=== PATIENT | female | born 1970 | race Caucasian/White ===

== ENCOUNTER 2019-09-04 17:39 | Emergency (ER) | payer SELFPAY ==
[2019-09-04 18:48] LABS: Basophils % 0.3 % (0-1.3); Hematocrit 40.8 % (36.0-45.0); Lymphocytes % 15.9 % (15.3-44.8); MPV 7.7 fL (7.6-11.3); RBC Red Blood Cell Count 4.59 M/uL (3.86-4.86)
[2019-09-04 19:06] LABS: ALT/SGPT 16 U/L (12-78); AST/SGOT 9 U/L (15-37); Albumin 3.2 g/dL (3.4-5.0); Alkaline Phosphatase 154 U/L (45-117); BUN Blood Urea Nitrogen 9 mg/dL (7-18); Bicarbonate 26 mmol/L (21-32); Bilirubin Direct 0.2 mg/dL (0-0.2); Bilirubin Total 0.6 mg/dL (0.2-1.0); Glucose Level 214 mg/dL (74-106); Lipase 81 U/L (73-393); Potassium 3.7 mmol/L (3.5-5.1); Protein, Total 7.8 g/dL (6.4-8.2); Sodium Level 133 mmol/L (136-145)
[2019-09-04] MEDS ORDERED: ONDANSETRON 4 MG/2 ML VIAL ONE ×2 (19:47→23:15)
[2019-09-04 19:53] LABS: Urine Blood NEGATIVE (NEG); Urine Glucose NEGATIVE (NEG); Urine Protein NEGATIVE (NEG); Urine Specific Gravity 1.015 (1.005-1.030)
[2019-09-04] MEDS ORDERED: NA CHLORIDE 0.9% 1,000 ML ONE (20:24)
[2019-09-04 20:41] LABS: Protime INR 1.19
--- NOTE | 2019-09-04 20:46 | RAD REPORT ---
EXAM DESCRIPTION: RAD - Chest Single View - 09/04/2019 8:39 pm CLINICAL HISTORY: ABDOMINAL DISTENTION Chest pain. COMPARISON: CHEST SINGLE VIEW dated 09/06/2013 FINDINGS: Portable technique limits examination quality. The lungs are grossly clear. The heart is normal in size. No displaced fractures. IMPRESSION: No acute intrathoracic process suspected.
[2019-09-04 21:15] LABS: Magnesium 1.9 mg/dL (1.8-2.4); NT PRO-BNP 48 pg/mL (<125); Troponin (Emerg Dept Use Only) < 0.02 ng/mL (0.0-0.045)
[2019-09-04] MEDS ORDERED: FAMOTIDINE 20 MG/2 ML VIAL IV ONE (23:15)
[2019-09-04] MEDS ORDERED: METRONIDAZOLE 500mg IVPB 500 MG/100 ML BAG IV ONE (23:15)
[2019-09-04] MEDS ORDERED: CIPROFLOXACIN 400mg IV 400 MG/200 ML BAG IV ONE (23:15)
--- NOTE | 2019-09-05 00:11 | ER ---
Nurse's Notes [facility] Name: Carin North Age: 49 yrs Sex: Female : 1970 Arrival Date: 09/04/2019 Time: 17:46 Bed 16 Private MD: Diagnosis: Abdominal tenderness;Ventral hernia;Obesity, unspecified-morbid;Vomiting;Urinary tract infection, site not specified;Elevated white blood cell count Presentation: 09/04 17:48 Presenting complaint: EMS states: N/V and Hernia pain for the past 3 days. Pt hasn't ca1 had a Doctor's visit in 6 years and has not been ambulating in 4 years. Last BM is 2 days ago. Transition of care: patient was not received from another setting of care. Onset of symptoms was September 04, 2019. Risk Assessment: Do you want to hurt yourself or someone else? Patient reports no desire to harm self or others. Initial Sepsis Screen: Does the patient meet any 2 criteria? No. Patient's initial sepsis screen is negative. Does the patient have a suspected source of infection? No. Patient's initial sepsis screen is negative. Care prior to arrival: None. 17:48 Method Of Arrival: EMS: [facility] ca1 17:48 Acuity: JEANNETTE 3 ca1 Triage Assessment: 17:52 General: Appears in no apparent distress. obese, Behavior is calm, cooperative, ca1 appropriate for age. Pain: Complains of pain in abdomen Pain does not radiate. Pain Pain began 2-3 days ago. EENT: No deficits noted. No signs and/or symptoms were reported regarding the EENT system. Neuro: Level of Consciousness is awake, alert, obeys commands, Oriented to person, place, time, situation, Appropriate for age. Cardiovascular: Heart tones S1 S2 present Capillary refill < 3 seconds Patient's skin is warm and dry. Pulses are all present. Rhythm is sinus tachycardia. Respiratory: Airway is patent Trachea midline Respiratory effort is even, unlabored, Respiratory pattern is regular, symmetrical, Breath sounds are clear bilaterally. GI: Abdomen is round non-distended, obese, Bowel sounds present X 4 quads. Abd is soft X 4 quads Abdomen is tender to palpation in umbilical area. : No deficits noted. No signs and/or symptoms were reported regarding the genitourinary system. Derm: Skin is intact, is healthy with good turgor, Skin is pink, warm \T\ dry. Musculoskeletal: Circulation, motion, and sensation intact. Capillary refill < 3 seconds. 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 - Social history:: Smoking status: Patient uses tobacco products, smokes one pack cigarettes per day. - Ebola Screening: : Patient negative for fever greater than or equal to 101.5 degrees Fahrenheit, and additional compatible Ebola Virus Disease symptoms Patient denies exposure to infectious person Patient denies travel to an Ebola-affected area in the 21 days before illness onset No symptoms or risks identified at this time. - Family history:: not pertinent. Screenin:59 Abuse screen: Denies threats or abuse. Denies injuries from another. Nutritional ca1 screening: No deficits noted. Tuberculosis screening: No symptoms or risk factors identified. Fall Risk IV access (20 points). Ambulatory Aid- None/Bed Rest/Nurse Assist (0 pts). Assessment: 17:59 Reassessment: SEE TRIAGE ASSESSMENT. ca1 19:00 Reassessment: Patient appears in no apparent distress at this time. Patient and/or ca1 family updated on plan of care and expected duration. Pain level reassessed. Patient is alert, oriented x 3, equal unlabored respirations, skin warm/dry/pink. 19:16 Reassessment: Patient appears in no apparent distress at this time. Patient and/or wh family updated on plan of care and expected duration. Pain level reassessed. Patient is alert, oriented x 3, equal unlabored respirations, skin warm/dry/pink. PT requesting urinal states that what she uses at home. 20:10 Reassessment: Spoke with Siria outside lab regarding additional orders for Trop, BNP wh and Mag. Green top was already sent requested to add additional lab works which she said was ok. 20:30 Reassessment: Patient appears in no apparent distress at this time. No changes from previously documented assessment. Patient and/or family updated on plan of care and expected duration. Pain level reassessed. Patient is alert, oriented x 3, equal unlabored respirations, skin warm/dry/pink. Patient states feeling better. Patient states symptoms have improved. 21:45 Reassessment: Patient appears in no apparent distress at this time. No changes from previously documented assessment. Patient and/or family updated on plan of care and expected duration. Pain level reassessed. Patient is alert, oriented x 3, equal unlabored respirations, skin warm/dry/pink. 22:22 Reassessment: Dr Navjot WILSON at bedside. 22:45 Reassessment: Patient appears in no apparent distress at this time. No changes from previously documented assessment. Patient and/or family updated on plan of care and expected duration. Pain level reassessed. Patient is alert, oriented x 3, equal unlabored respirations, skin warm/dry/pink. PT taken to CT scan for imaging. 23:50 Reassessment: Patient appears in no apparent distress at this time. No changes from previously documented assessment. Patient and/or family updated on plan of care and expected duration. Pain level reassessed. Patient is alert, oriented x 3, equal unlabored respirations, skin warm/dry/pink. Notified Pt of POC and plan for transfer Patient denies pain at this time. Patient states feeling better. Patient states symptoms have improved. 09/05 00:57 Reassessment: Patient appears in no apparent distress at this time. No changes from previously documented assessment. Patient and/or family updated on plan of care and expected duration. Pain level reassessed. Patient is alert, oriented x 3, equal unlabored respirations, skin warm/dry/pink. Patient denies pain at this time. Patient states feeling better. Patient states symptoms have improved. 02:20 Reassessment: Patient appears in no apparent distress at this time. No changes from previously documented assessment. Patient and/or family updated on plan of care and expected duration. Pain level reassessed. Patient is alert, oriented x 3, equal unlabored respirations, skin warm/dry/pink. Explained plan fo transfer to [facility] Patient denies pain at this time. Patient states feeling better. Patient states symptoms have improved. 03:04 Reassessment: Patient appears in no apparent distress at this time. Report called to Dinora Mendez RN. 03:40 Reassessment: Patient appears in no apparent distress at this time. No changes from previously documented assessment. Patient and/or family updated on plan of care and expected duration. Pain level reassessed. Patient is alert, oriented x 3, equal unlabored respirations, skin warm/dry/pink. Patient denies pain at this time. Patient states feeling better. Patient states symptoms have improved. Vital Signs: 09/04 17:52 BP 149 / 94; Pulse 108; Resp 20; Temp 98.3(O); Pulse Ox 96% on R/A; Weight 201.85 kg ca1 (R); Height 5 ft. 4 in. (162.56 cm) (R); Pain 9/10; 19:00 BP 135 / 72; Pulse 117; Resp 19 S; Pulse Ox 96% on R/A; ca1 20:30 BP 124 / 72; Pulse 119; Resp 18; Pulse Ox 96% on R/A; wh 22:00 BP 139 / 67; Pulse 112; Resp 18; Pulse Ox 97% ; wh 22:00 BP 150 / 94; Pulse 120; Resp 18; Pulse Ox 99% on R/A; 09/05 00:58 BP 128 / 88; Pulse 115; Resp 18; Pulse Ox 98% ; wh 02:45 BP 125 / 79; Pulse 115; Resp 18; Pulse Ox 95% on R/A; 09/04 17:52 Body Mass Index 76.38 (201.85 kg, 162.56 cm) ca1 ED Course: 09/04 17:46 Patient arrived in ED. ca1 17:47 Karla Coyle, RN is Primary Nurse. ca1 17:50 Triage completed. ca1 17:52 Arm band placed on right wrist. ca1 17:59 Patient has correct armband on for positive identification. Placed in gown. Bed in low ca1 position. Call light in reach. Side rails up X2. monitor tech on. Pulse ox on. NIBP on. Warm blanket given. 18:35 Initial lab(s) drawn, by me, sent to lab. Inserted saline lock: 22 gauge in left ca1 antecubital area, using aseptic technique. Blood collected. 19:01 No provider procedures requiring assistance completed. ca1 19:28 Yuri Morfin MD is Attending Physician. [facility] 19:50 Hilario Wells is Primary Nurse. wh 20:40 XRAY Chest (1 view) In Process Unspecified. EDMS 23:39 Abdomen In Process Unspecified. EDMS 09/05 00:08 Jared Ibanez MD is Hospitalizing Provider. stephane 03:50 Patient transferred, IV remains in place. Administered Medications: 09/04 19:50 Drug: Zofran 4 mg Route: IVP; Site: left antecubital; 21:44 Follow up: Response: No adverse reaction; Nausea is decreased 20:34 Drug: NS 0.9% 1000 ml Route: IV; Rate: 1 bolus; Site: left antecubital; 21:44 Follow up: Response: No adverse reaction; IV Status: Completed infusion 09/05 01:00 Follow up: Response: No adverse reaction; IV Status: Completed infusion 09/04 23:15 Drug: Flagyl 500 mg Volume: 100 ml; Route: IVPB; Rate: 200 ml/hr; Infused Over: 30 wh mins; Site: left antecubital; 09/05 01:01 Follow up: Response: No adverse reaction; IV Status: Completed infusion 09/04 23:19 Drug: Pepcid 20 mg Route: IVP; Site: left antecubital; 09/05 01:03 Follow up: Response: No adverse reaction 09/04 23:21 Not Given (Patient Refused): morphine 4 mg IVP once; RASS on ADMIN: Combtv4, Very wh Agttd3, Agttd2, Rstlss1, AlertClm0, Drwsy-1, Lt Sdtn-2, Mod Sdtn-3, Dp Sdtn-4, UnArsble-5 23:21 Drug: Zofran 4 mg Route: IVP; Site: left antecubital; 09/05 01:03 Follow up: Response: No adverse reaction; Nausea is decreased 09/04 23:52 Not Given (Duplicate Order): Cipro 400 mg 200 ml IVPB once over 60 mins stephane 23:58 Drug: Cipro 400 mg Volume: 200 ml; Route: IVPB; Infused Over: 60 mins; Site: left antecubital; 09/05 01:03 Follow up: Response: No adverse reaction; IV Status: Completed infusion Outcome: 00:10 Decision to Hospitalize by Provider. stephane 00:15 ER care complete, transfer ordered by . stephane 03:49 Transferred by ground EMS to [facility], Transfer form wh completed. X-rays sent w/ patient. Note: REport called to Jose Daniel Mendez RN 03:49 Transferred Note: Report given to [facility] 03:49 Condition: stable 03:49 Instructed on the need for transfer. 03:50 Patient left the ED. Signatures: Dispatcher [employer] EDYuri Castaneda MD MD cha Habalo, Winsy wh Acob, Cheryl, RN RN ca1 Corrections: (The following items were deleted from the chart) 09/04 19:01 17:52 Cardiovascular: Heart tones S1 S2 present Capillary refill < 3 seconds Patient's ca1 skin is warm and dry. Pulses are all present. ca1
--- NOTE | 2019-09-05 00:12 | EDPHYS ---
Physician Documentation [facility] Name: Carin North Age: 49 yrs Sex: Female : 1970 Arrival Date: 09/04/2019 Time: 17:46 Bed 16 Private MD: ED Physician Yuri Morfin HPI: 09/04 22:25 This 49 yrs old Female presents to ER via EMS with complaints of Abdominal stephane Pain. 22:25 The patient presents with abdominal pain in the lower abdomen, in the periumbilical stephane area. abdominal distention in the upper abdomen, in the lower abdomen. Onset: The symptoms/episode began/occurred 3 day(s) ago. The symptoms do not radiate. Associated signs and symptoms: none. The symptoms are described as constant, crampy. Modifying factors: The symptoms are alleviated by nothing, the symptoms are aggravated by movement, pressure. Severity of pain: At its worst the pain was mild in the emergency department the pain is unchanged. The patient has not experienced similar symptoms in the past. 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 - Social history:: Smoking status: Patient uses tobacco products, smokes one pack cigarettes per day. - Ebola Screening: : Patient negative for fever greater than or equal to 101.5 degrees Fahrenheit, and additional compatible Ebola Virus Disease symptoms Patient denies exposure to infectious person Patient denies travel to an Ebola-affected area in the 21 days before illness onset No symptoms or risks identified at this time. - Family history:: not pertinent. ROS: 22:25 Constitutional: Negative for fever, chills, and weight loss, Eyes: Negative for injury, stephane pain, redness, and discharge, ENT: Negative for injury, pain, and discharge, Neck: Negative for injury, pain, and swelling, Respiratory: Negative for shortness of breath, cough, wheezing, and pleuritic chest pain, Back: Negative for injury and pain, : Negative for injury, bleeding, discharge, and swelling, MS/Extremity: Negative for injury and deformity, Skin: Negative for injury, rash, and discoloration, Neuro: Negative for headache, weakness, numbness, tingling, and seizure, Psych: Negative for depression, anxiety, suicide ideation, homicidal ideation, and hallucinations, Allergy/Immunology: Negative for hives, rash, and allergies, Endocrine: Negative for neck swelling, polydipsia, polyuria, polyphagia, and marked weight changes, Hematologic/Lymphatic: Negative for swollen nodes, abnormal bleeding, and unusual bruising. 22:25 Cardiovascular: Positive for palpitations. 22:25 Abdomen/GI: Positive for abdominal pain, nausea and vomiting, of the umbilical area and right lower quadrant. Exam: 22:25 Constitutional: This is a well developed, well nourished patient who is awake, alert, stephane and in no acute distress. Head/Face: Normocephalic, atraumatic. Eyes: Pupils equal round and reactive to light, extra-ocular motions intact. Lids and lashes normal. Conjunctiva and sclera are non-icteric and not injected. Cornea within normal limits. Periorbital areas with no swelling, redness, or edema. ENT: Nares patent. No nasal discharge, no septal abnormalities noted. Tympanic membranes are normal and external auditory canals are clear. Oropharynx with no redness, swelling, or masses, exudates, or evidence of obstruction, uvula midline. Mucous membranes moist. Neck: Trachea midline, no thyromegaly or masses palpated, and no cervical lymphadenopathy. Supple, full range of motion without nuchal rigidity, or vertebral point tenderness. No Meningismus. Chest/axilla: Normal chest wall appearance and motion. Nontender with no deformity. No lesions are appreciated. Respiratory: Lungs have equal breath sounds bilaterally, clear to auscultation and percussion. No rales, rhonchi or wheezes noted. No increased work of breathing, no retractions or nasal flaring. Back: No spinal tenderness. No costovertebral tenderness. Full range of motion. Pelvic Exam: Normal external genitalia. Speculum exam with closed cervical os, no discharge or bleeding noted. Bimanual exam with normal adnexa, no adnexal or cervical motion tenderness. Normal uterus. Female : Normal external genitalia. Skin: Warm, dry with normal turgor. Normal color with no rashes, no lesions, and no evidence of cellulitis. MS/ Extremity: Pulses equal, no cyanosis. Neurovascular intact. Full, normal range of motion. Neuro: Awake and alert, GCS 15, oriented to person, place, time, and situation. Cranial nerves II-XII grossly intact. Motor strength 5/5 in all extremities. Sensory grossly intact. Cerebellar exam normal. Normal gait. Psych: Awake, alert, with orientation to person, place and time. Behavior, mood, and affect are within normal limits. 22:25 Cardiovascular: Rate: tachycardic, Rhythm: regular, Pulses: no pulse deficits are appreciated, Heart sounds: normal, normal S1and S2, no S3 or S4, no murmur, no rub, no gallop, Edema: is not appreciated, JVD: is not appreciated. Vital Signs: 17:52 BP 149 / 94; Pulse 108; Resp 20; Temp 98.3(O); Pulse Ox 96% on R/A; Weight 201.85 kg ca1 (R); Height 5 ft. 4 in. (162.56 cm) (R); Pain 9/10; 19:00 BP 135 / 72; Pulse 117; Resp 19 S; Pulse Ox 96% on R/A; ca1 20:30 BP 124 / 72; Pulse 119; Resp 18; Pulse Ox 96% on R/A; wh 22:00 BP 139 / 67; Pulse 112; Resp 18; Pulse Ox 97% ; wh 22:00 BP 150 / 94; Pulse 120; Resp 18; Pulse Ox 99% on R/A; 09/05 00:58 BP 128 / 88; Pulse 115; Resp 18; Pulse Ox 98% ; wh 02:45 BP 125 / 79; Pulse 115; Resp 18; Pulse Ox 95% on R/A; 09/04 17:52 Body Mass Index 76.38 (201.85 kg, 162.56 cm) ca1 MDM: 09/04 19:28 Patient medically screened. [facility] 22:28 Data reviewed: vital signs, nurses notes, lab test result(s), EKG, radiologic studies, [facility] CT scan, plain films. 09/04 18:35 Order name: Basic Metabolic Panel; Complete Time: 19:51 ca1 09/04 18:35 Order name: CBC with Diff; Complete Time: 19:51 ca1 09/04 18:35 Order name: Hepatic Function; Complete Time: 19:51 ca1 09/04 18:35 Order name: Lipase; Complete Time: 19:51 ca1 09/04 19:38 Order name: Urine Dipstick--Ancillary (enter results); Complete Time: 22:15 sp 09/04 19:58 Order name: Magnesium; Complete Time: 22:15 [facility] 09/04 19:58 Order name: NT PRO-BNP; Complete Time: 22:15 stephane 09/04 19:58 Order name: PT-INR; Complete Time: 22:15 [facility] 09/04 19:58 Order name: Troponin (emerg Dept Use Only); Complete Time: 22:15 stephane 09/04 19:58 Order name: XRAY Chest (1 view); Complete Time: 22:15 [facility] 09/04 23:19 Order name: Abdomen EDMS 09/05 00:57 Order name: Lactate [facility] 09/04 18:35 Order name: IV Saline Lock; Complete Time: 18:35 [facility] 09/04 18:35 Order name: Labs collected and sent; Complete Time: 18:35 [facility] 09/04 19:24 Order name: Urine Dipstick-Ancillary (obtain specimen); Complete Time: 19:29 cc3 09/04 19:58 Order name: EKG; Complete Time: 19:59 [facility] 09/04 19:58 Order name: Cardiac monitoring; Complete Time: 20:35 [facility] 09/04 19:58 Order name: EKG - Nurse/Tech; Complete Time: 20:35 [facility] 09/04 19:58 Order name: O2 Per Protocol; Complete Time: 20:01 [facility] 09/04 19:58 Order name: O2 Sat Monitoring; Complete Time: 20:01 [facility] Administered Medications: 19:50 Drug: Zofran 4 mg Route: IVP; Site: left antecubital; 21:44 Follow up: Response: No adverse reaction; Nausea is decreased 20:34 Drug: NS 0.9% 1000 ml Route: IV; Rate: 1 bolus; Site: left antecubital; 21:44 Follow up: Response: No adverse reaction; IV Status: Completed infusion 09/05 01:00 Follow up: Response: No adverse reaction; IV Status: Completed infusion 09/04 23:15 Drug: Flagyl 500 mg Volume: 100 ml; Route: IVPB; Rate: 200 ml/hr; Infused Over: 30 wh mins; Site: left antecubital; 09/05 01:01 Follow up: Response: No adverse reaction; IV Status: Completed infusion 09/04 23:19 Drug: Pepcid 20 mg Route: IVP; Site: left antecubital; 09/05 01:03 Follow up: Response: No adverse reaction 09/04 23:21 Not Given (Patient Refused): morphine 4 mg IVP once; RASS on ADMIN: Combtv4, Very wh Agttd3, Agttd2, Rstlss1, AlertClm0, Drwsy-1, Lt Sdtn-2, Mod Sdtn-3, Dp Sdtn-4, UnArsble-5 23:21 Drug: Zofran 4 mg Route: IVP; Site: left antecubital; 09/05 01:03 Follow up: Response: No adverse reaction; Nausea is decreased 09/04 23:52 Not Given (Duplicate Order): Cipro 400 mg 200 ml IVPB once over 60 mins [facility] 23:58 Drug: Cipro 400 mg Volume: 200 ml; Route: IVPB; Infused Over: 60 mins; Site: left antecubital; 09/05 01:03 Follow up: Response: No adverse reaction; IV Status: Completed infusion Disposition: 09/05/19 00:15 Transfer ordered to [facility]. Diagnosis are Abdominal tenderness, Ventral hernia, Obesity, unspecified - morbid, Vomiting, Urinary tract infection, site not specified, Elevated white blood cell count. - Reason for transfer: Higher level of care. - Accepting physician is to [facility]. - Condition is Fair. - Problem is new. - Symptoms have improved. Signatures: Dispatcher [employer] EDVT Yuri Morfin MD MD cha Habalo, Meñoasher Joanna Tamez cc3 Leonides, Karla, RN RN ca1 Corrections: (The following items were deleted from the chart) 09/04 19:53 18:36 Creatinine for Radiology+C.LAB.BRZ ordered. [facility] EDVT 23:17 20:00 Abdomen Pelvis W Con+CT.RAD.BRZ ordered. [facility] 09/05 00:11 00:10 Hospitalization Ordered by Jared Ibanez MD for Inpatient Admission. Preliminary [facility] diagnosis is Ventral hernia; Vomiting; Obesity, unspecified - morbid; Abdominal tenderness. Bed requested for Telemetry/MedSurg (Inpatient). Status is Inpatient Admission. Condition is Fair. Problem is new. Symptoms have improved. UTI on Admission? No. [facility] 00:13 00:11 09/05/2019 00:10 Hospitalization Ordered by Jared Ibanez MD for Inpatient [facility] Admission. Preliminary diagnosis is Ventral hernia; Vomiting; Obesity, unspecified - morbid; Abdominal tenderness; Urinary tract infection, site not specified. Bed requested for Telemetry/MedSurg (Inpatient). Status is Inpatient Admission. Condition is Fair. Problem is new. Symptoms have improved. UTI on Admission? Yes. [facility] 00:40 00:15 09/05/2019 00:15 Transfer ordered to [facility]. Diagnosis is stephane Abdominal tenderness; Ventral hernia; Obesity, unspecified - morbid; Vomiting; Urinary tract infection, site not specified. Reason for transfer: Higher level of care. Accepting physician is to [facility]. Condition is Fair. Problem is new. Symptoms have improved. [facility] 02:38 00:40 09/05/2019 00:15 Transfer ordered to [facility]. Diagnosis is stephane Abdominal tenderness; Ventral hernia; Obesity, unspecified - morbid; Vomiting; Urinary tract infection, site not specified; Elevated white blood cell count. Reason for transfer: Higher level of care. Accepting physician is to [facility]. Condition is Fair. Problem is new. Symptoms have improved. [facility] 03:50 02:38 09/05/2019 00:15 Transfer ordered to [facility]. Diagnosis is Abdominal wh tenderness; Ventral hernia; Obesity, unspecified - morbid; Vomiting; Urinary tract infection, site not specified; Elevated white blood cell count. Reason for transfer: Higher level of care. Accepting physician is to [facility]. Condition is Fair. Problem is new. Symptoms have improved. stephane
[2019-09-05 04:10] VITALS: TEMP 98.3
[2019-09-05 04:20] VITALS: BP 125/79; O2SAT 95
--- NOTE | 2019-09-05 08:44 | EKG ---
Test Date: 2019-09-04 Test Time: 20:27:59 Costume Cutter: KENNY MEASUREMENT RESULTS: Intervals: Rate: 127 WI: 152 QRSD: 90 QT: 322 QTc: 467 [place]: P: 54 WI: 152 QRS: 113 T: 35 INTERPRETIVE STATEMENTS: Sinus tachycardia Possible Right ventricular hypertrophy Possible Inferior infarct, age undetermined Abnormal ECG Compared to ECG 09/06/2013 20:45:47 questionable myocardial infarct finding now present Sinus rhythm no longer present Prolonged QT interval no longer present Electronically Signed On 09-05-19 08:44:10 CDT by Raffaele Brown
--- NOTE | 2019-09-07 13:43 | RAD REPORT ---
EXAM DESCRIPTION: CT - Abdomen Pelvis W Contrast - 09/04/2019 11:39 pm CLINICAL HISTORY: PAIN TECHNIQUE: Contiguous axial images obtained through the abdomen and pelvis following the uneventful administration of IV contrast. Coronal and sagittal reformatted images were provided. This exam was performed according to our departmental dose-optimization program, which includes autom ated exposure control, adjustment of the mA and/or kV according to patient size and/or use of iterati ve reconstruction technique. COMPARISON: 09/06/2013 FINDINGS: Lung bases: Right middle lobe calcified granuloma. Right basilar subsegmental atelectasis/ pleural parenchymal scar. Liver: The liver is enlarged and diffusely low in density compatible with steatosis. Gallbladder and biliary system: The gallbladder is not visualized and thought to be surgically absent . Pancreas: Unremarkable Spleen: Unremarkable Adrenals: Unremarkable Kidneys: Normal renal cortical enhancement. No calculi. No hydronephrosis. Bowel: Colonic diverticula without adjacent inflammatory change. No obstruction. No appreciable mucos al thickening. Appendix: The appendix is not definitively visualized. No findings to suggest acute appendicitis. Urinary bladder: Unremarkable Reproductive: Unremarkable as visualized Lymph nodes: No pathologically enlarged lymph nodes. Peritoneum: No focal fluid collection. No free air. Vessels: No abdominal aortic aneurysm. Abdominal wall: Large ventral abdominal wall hernia which appears increased in size containing portio ns of the transverse colon as well as a small bowel loop. Mild thickening of the small bowel loop wit hin the hernia. Minimal infiltrative changes within and surrounding the hernia. Bones: Mild multilevel spondylosis. No acute fracture. IMPRESSION: 1. Large ventral abdominal wall hernia which appears increased in size containing port ions of the transverse colon as well as a small bowel loop. Mild thickening of the small bowel loop w ithin the hernia. Minimal infiltrative changes within and surrounding the hernia. Although the small bowel findings may be related to nonspecific enteritis, please correlate clinically for the possibili ty of incarceration and/or strangulation. 2. Other findings as above. Electronically signed by: Markos Mckeon MD 09/04/2019 11:54 PM CDT Due to temporary technical issues with the PACS/Fluency reporting system, reports are being signed by the in house radiologist as a courtesy to ensure prompt reporting. The interpreting radiologist is f ully responsible for the content of the report.
== END 2019-09-05 03:50 | disposition short-term general hospital (02) ==
LOC: ER 17:39
DX: K43.9 Ventral hernia without obstruction or gangrene (principal); N39.0 Urinary tract infection, site not specified; R11.10 Vomiting, unspecified; D72.829 Elevated white blood cell count, unspecified; R10.819 Abdominal tenderness, unspecified site; E66.9 Obesity, unspecified; E66.01 Morbid (severe) obesity due to excess calories; Z88.0 Allergy status to penicillin; F17.210 Nicotine dependence, cigarettes, uncomplicated
CPT/HCPCS: 36415; 71045; 74177; 80048; 80076; 81003; 83605; 83690; 83735; 83880; 84484; 85025; 85610; 93005; 96361; 96365; 96368; 96375; 99285; J0744; J2405; J7030; Q9967

== ENCOUNTER 2020-05-03 13:05 | Emergency (ER) | payer SELFPAY ==
[2020-05-03] MEDS ORDERED: NA CHLORIDE 0.9% 1,000 ML ONE (13:46)
[2020-05-03 13:52] LABS: Absolute Lymphocytes (CBC) 1.3 K/uL (0.7-4.9); Basophils % 0.9 % (0-1.3); Hematocrit 43.5 % (36.0-45.0); Lymphocytes % 9.9 % (15.3-44.8); MPV 7.6 fL (7.6-11.3); RBC Red Blood Cell Count 4.79 M/uL (3.86-4.86)
--- NOTE | 2020-05-03 14:05 | RAD REPORT ---
EXAM DESCRIPTION: US - Extremity Nonvascular Complete - 05/03/2020 1:58 pm CLINICAL HISTORY: evaluate for abscess in left abd COMPARISON: No comparisons TECHNIQUE: Real-time sonographic evaluation of the area of interest was performed. FINDINGS: Edematous appearance of the soft tissues in the area of interest noted. No discrete absces s collection identified.
[2020-05-03 14:08] LABS: Potassium 3.3 mmol/L (3.5-5.1)
--- NOTE | 2020-05-03 14:48 | ER ---
Nurse's Notes [facility] Name: Carin North Age: 50 yrs Sex: Female : 1970 Arrival Date: 05/03/2020 Time: 13:16 Bed 18 Private MD: Diagnosis: Anxiety disorder, unspecified Presentation: 05/03 13:05 Chief complaint: EMS states: she was on a transit bus and developed anxiety. She c/o ah pain all over 7/10 and nausea. Per EMS last BP 117/59, HR 127. Coronavirus screen: Proceed with normal triage. Ebola Screen: No symptoms or risks identified at this time. Initial Sepsis Screen: Does the patient meet any 2 criteria? No. Patient's initial sepsis screen is negative. Does the patient have a suspected source of infection? No. Patient's initial sepsis screen is negative. Risk Assessment: Do you want to hurt yourself or someone else? Patient reports no desire to harm self or others. Onset of symptoms was May 03, 2020. Care prior to arrival: Medication(s) given: zofran 2 mgIV Ativan 4mg IV. 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 - Social history:: Smoking status: Patient denies any tobacco usage or history of. Screenin:30 Abuse screen: Denies threats or abuse. Nutritional screening: No deficits noted. Tuberculosis screening: No symptoms or risk factors identified. Fall Risk None identified. Gait- Normal/Bed Rest/Wheelchair (0 pts). Assessment: 13:15 General: Appears in no apparent distress. Behavior is calm, cooperative, appropriate ah for age. Pain: Complains of pain in ALL OVER. Neuro: Level of Consciousness is awake, alert, obeys commands, Oriented to person, place, time, situation, Appropriate for age. Cardiovascular: Heart tones S1 S2 present Capillary refill < 3 seconds Patient's skin is warm and dry. Rhythm is sinus tachycardia. Respiratory: Airway is patent Respiratory effort is even, unlabored, Breath sounds are clear bilaterally. GI: Reports nausea. Derm: Skin is intact, is healthy with good turgor, Pt states that she has large mass on left side that has been growing over approx 5 months. She denies seeing a doctor. Musculoskeletal: Reports bedbound x1 year. 14:18 Reassessment: Patient and/or family updated on plan of care and expected duration. Pain ah level reassessed. Patient is alert, oriented x 3, equal unlabored respirations, skin warm/dry/pink. awaiting results of labs. no needs voiced at this time. Vital Signs: 13:05 BP 145 / 59; Pulse 125; Resp 16; Temp 98.1; Pulse Ox 95% ; Weight 181.44 kg; Height 5 ah ft. 4 in. (162.56 cm); Pain 7/10; 14:00 BP 117 / 71; Pulse 122; Resp 17; Pulse Ox 96% ; ah 14:39 BP 126 / 71; Pulse 108; Resp 19; Pulse Ox 96% ; jl7 13:05 Body Mass Index 68.66 (181.44 kg, 162.56 cm) ED Course: 13:16 Patient arrived in ED. 13:16 Bushra Brown, RN is Primary Nurse. 13:22 Carmella Heard FNP-C is PHCP. kb 13:22 Avtar Gómez MD is Attending Physician. kb 13:22 Maintain EMS IV. Dressing intact. Good blood return noted. Site clean \T\ dry. Gauge \T\ henok 3 site: 22 gauge in L Wrist. Patient maintains SpO2 saturation greater than 95% on room air. 13:23 Triage completed. ah 13:23 Patient has correct armband on for positive identification. Bed in low position. Call jp3 light in reach. Side rails up X 1. Side rails up X2. Verbal reassurance given. tire layer on. Pulse ox on. NIBP on. 13:58 Extremity Nonvascular Complete In Process Unspecified. EDMS 14:44 Arm band placed on right wrist. jl7 15:06 Removal of peripheral IV. Catheter intact, dressing applied. jp3 15:21 No provider procedures requiring assistance completed. IV discontinued, intact, jl7 bleeding controlled, No redness/swelling at site. Pressure dressing applied. Administered Medications: 13:30 Drug: NS 0.9% 1000 ml Route: IV; Rate: 1000 ml; Site: left wrist; 15:00 Follow up: Response: No adverse reaction; IV Status: Completed infusion; IV Intake: jl7 1000ml Intake: 15:00 IV: 1000ml; Total: 1000ml. jl7 Outcome: 14:48 Discharge ordered by MD. seay 15:21 Discharged to home via ambulance. jl7 15:21 Condition: stable 15:21 Discharge instructions given to patient, Instructed on discharge instructions, follow up and referral plans. Demonstrated understanding of instructions, follow-up care. 15:23 Patient left the ED. jl7 Signatures: Dispatcher [employer] EDMS Carmella Heard FNP-C FNP-Ckb Leal, Jahala RN RN jl7 Carlton Rodriguez jp3 Bushra Brown, RN RN
--- NOTE | 2020-05-03 14:49 | EDPHYS ---
Physician Documentation [facility] Name: Carin North Age: 50 yrs Sex: Female : 1970 Arrival Date: 05/03/2020 Time: 13:16 Bed 18 Private MD: ED Physician Avtar Gómez HPI: 05/03 14:52 This 50 yrs old Female presents to ER via EMS with complaints of Anxiety. kb 14:52 The patient presents to the emergency department with anxiety. Onset: The kb symptoms/episode began/occurred just prior to arrival. Past psychiatric history: Prior diagnosis: anxiety. Associated signs and symptoms: Pertinent positives; anxiety, Pertinent negatives: abdominal pain, chest pain, chills, delusions, depression, fever, hallucinations, headache, homicidal ideation, nausea, night sweats, palpitations, paranoia, shortness of breath, substance abuse, suicide ideation, tremor, vomiting. Severity of symptoms: At their worst the symptoms were moderate in the emergency department the symptoms are unchanged. The patient has experienced similar episodes in the past, multiple times. The patient has not recently seen a physician. Pt reports she was being moved today and when they got to the new house the AC was broken so it was too hot and she couldn't breathe then she started having a panic attack. Pt crying as she explains currents stressors. States she has been bedbound for a year, completely unable to stand due to osteoarthritis. Pt is also concerned about some areas she refers to as "growths" in her abd. One has been there for a long time and a dr told her not to worry about it. Now there is a second one that started 5 months ago. 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 - Social history:: Smoking status: Patient denies any tobacco usage or history of. ROS: 14:55 Constitutional: Negative for fever, chills, and weight loss, Cardiovascular: Negative kb for chest pain, palpitations, and edema, Respiratory: Negative for shortness of breath, cough, wheezing, and pleuritic chest pain, Abdomen/GI: Negative for abdominal pain, nausea, vomiting, diarrhea, and constipation, Back: Negative for injury and pain, MS/Extremity: Negative for injury and deformity, Skin: Negative for injury, rash, and discoloration, Neuro: Negative for headache, weakness, numbness, tingling, and seizure. 14:55 Psych: Positive for anxiety, Negative for depression, drug dependence, alcohol dependence, auditory hallucinations, visual hallucinations, homicidal ideation, insomnia, suicide gesture, suicidal ideation. 14:57 Skin: Positive for "growths" in abd. kb Exam: 14:55 Constitutional: This is a well developed, well nourished patient who is awake, alert, kb and in no acute distress. Head/Face: Normocephalic, atraumatic. Chest/axilla: Normal chest wall appearance and motion. Nontender with no deformity. No lesions are appreciated. Cardiovascular: Regular rate and rhythm with a normal S1 and S2. No gallops, murmurs, or rubs. Normal PMI, no JVD. No pulse deficits. Respiratory: Lungs have equal breath sounds bilaterally, clear to auscultation and percussion. No rales, rhonchi or wheezes noted. No increased work of breathing, no retractions or nasal flaring. Abdomen/GI: Soft, non-tender, with normal bowel sounds. No distension or tympany. No guarding or rebound. No evidence of tenderness throughout. Firm areas in left lateral abd. Skin: Warm, dry with normal turgor. Normal color with no rashes, no lesions, and no evidence of cellulitis. 14:55 Psych: Behavior/mood is cooperative, anxious, depressed, Affect is animated, Oriented to person, place, time, Patient has no thoughts/intents to harm self or others. Judgement / Insight is normal. Memory is normal. Delusions/hallucinations are not present. Vital Signs: 13:05 BP 145 / 59; Pulse 125; Resp 16; Temp 98.1; Pulse Ox 95% ; Weight 181.44 kg; Height 5 ah ft. 4 in. (162.56 cm); Pain 7/10; 14:00 BP 117 / 71; Pulse 122; Resp 17; Pulse Ox 96% ; 14:39 BP 126 / 71; Pulse 108; Resp 19; Pulse Ox 96% ; jl7 13:05 Body Mass Index 68.66 (181.44 kg, 162.56 cm) MDM: 13:22 Patient medically screened. kb 14:52 Data reviewed: vital signs, nurses notes. Data interpreted: Pulse oximetry: on room air kb is 96 %. Interpretation: normal. Counseling: I had a detailed discussion with the patient and/or guardian regarding: the historical points, exam findings, and any diagnostic results supporting the discharge/admit diagnosis, lab results, the need for outpatient follow up, a family practitioner, to return to the emergency department if symptoms worsen or persist or if there are any questions or concerns that arise at home. 05/03 13:32 Order name: Basic Metabolic Panel; Complete Time: 14:09 kb 05/03 13:32 Order name: CBC with Diff; Complete Time: 13:57 kb 05/03 13:32 Order name: IV Start; Complete Time: 13:36 kb 05/03 13:58 Order name: Extremity Nonvascular Complete; Complete Time: 14:07 EDMS Administered Medications: 13:30 Drug: NS 0.9% 1000 ml Route: IV; Rate: 1000 ml; Site: left wrist; 15:00 Follow up: Response: No adverse reaction; IV Status: Completed infusion; IV Intake: jl7 1000ml Disposition: 05/04 06:06 Co-signature as Attending Physician, Avtar Gómez MD I agree with the assessment and kdr plan of care. Disposition: 05/03/20 14:48 Discharged to Home. Impression: Anxiety disorder, unspecified. - Condition is Stable. - Discharge Instructions: Panic Attacks, Psin-fi-Mvia, Generalized Anxiety Disorder. - Medication Reconciliation Form, Thank You Letter, Antibiotic Education, Prescription Opioid Use form. - Follow up: Emergency Department; When: As needed; Reason: Worsening of condition. Follow up: Private Physician; When: 2 - 3 days; Reason: Recheck today's complaints, Continuance of care, Re-evaluation by your physician. Signatures: Dispatcher [employer] EDMS Carmella Heard, Avtar Vaz MD MD kdr Leal, Jahala RN RN jl7 Bushra Bronw, RN RN Corrections: (The following items were deleted from the chart) 05/03 13:58 13:33 Extrmty Nonvasular Limited+US.RAD.BRZ ordered. EDMS EDMS 14:57 14:55 Constitutional: Negative for fever, chills, and weight loss, Cardiovascular: kb Negative for chest pain, palpitations, and edema, Respiratory: Negative for shortness of breath, cough, wheezing, and pleuritic chest pain, Abdomen/GI: Negative for abdominal pain, nausea, vomiting, diarrhea, and constipation, Back: Negative for injury and pain, MS/Extremity: Negative for injury and deformity, Skin: Negative for injury, rash, and discoloration, Neuro: Negative for headache, weakness, numbness, tingling, and seizure, kb 14:57 14:55 Constitutional: This is a well developed, well nourished patient who is awake, kb alert, and in no acute distress. Head/Face: Normocephalic, atraumatic. Chest/axilla: Normal chest wall appearance and motion. Nontender with no deformity. No lesions are appreciated. Cardiovascular: Regular rate and rhythm with a normal S1 and S2. No gallops, murmurs, or rubs. Normal PMI, no JVD. No pulse deficits. Respiratory: Lungs have equal breath sounds bilaterally, clear to auscultation and percussion. No rales, rhonchi or wheezes noted. No increased work of breathing, no retractions or nasal flaring. Abdomen/GI: Soft, non-tender, with normal bowel sounds. No distension or tympany. No guarding or rebound. No evidence of tenderness throughout. Skin: Warm, dry with normal turgor. Normal color with no rashes, no lesions, and no evidence of cellulitis. kb 14:59 14:52 Pt reports she was being moved today and when they got to the new house the AC kb was broken so it was too hot and she couldn't breathe then she started having a panic attack. Pt crying as she explains currents stressors. States she has been bedbound for a year, completely unable to stand due to osteoarthritis.. kb 15:23 14:48 05/03/2020 14:48 Discharged to Home. Impression: Anxiety disorder, unspecified. jl7 Condition is Stable. Forms are Medication Reconciliation Form, Thank You Letter, Antibiotic Education, Prescription Opioid Use. Follow up: Emergency Department; When: As needed; Reason: Worsening of condition. Follow up: Private Physician; When: 2 - 3 days; Reason: Recheck today's complaints, Continuance of care, Re-evaluation by your physician. kb
[2020-05-03 15:48] VITALS: TEMP 98.1
[2020-05-03 15:52] VITALS: BP 117/71; O2SAT 96
== END 2020-05-03 15:23 | disposition home or self-care (01) ==
LOC: ER 13:05
DX: F41.9 Anxiety disorder, unspecified (principal); M19.90 Unspecified osteoarthritis, unspecified site; Z88.0 Allergy status to penicillin; Z88.5 Allergy status to narcotic agent; Z91.048 Other nonmedicinal substance allergy status
CPT/HCPCS: 36415; 76881; 80048; 85025; 96360; 99285; J7030

== ENCOUNTER 2021-07-20 02:35 | Emergency (ER) | payer SELFPAY ==
[2021-07-20 04:17] LABS: Absolute Lymphocytes (CBC) 2.1 K/uL (0.7-4.9); Hematocrit 39.6 % (36.0-45.0); Lymphocytes % 19.1 % (15.3-44.8); Protime INR 1.27; RBC Red Blood Cell Count 4.65 M/uL (3.86-4.86)
[2021-07-20] MEDS ORDERED: NA CHLORIDE 0.9% 1,000 ML ONE (04:20)
[2021-07-20] MEDS ORDERED: CEFTRIAXONE/SWI 1gm 1 GM/10 ML SYR ONE (04:20)
[2021-07-20 04:32] LABS: Urine Blood 1+ (Negative); Urine Glucose 1+ (Negative); Urine Protein Negative (Negative); Urine pH 5.5 (5.0-7.0)
[2021-07-20 04:35] LABS: ALT/SGPT 17 U/L (12-78); AST/SGOT 8 U/L (15-37); Albumin 3.2 g/dL (3.4-5.0); Alkaline Phosphatase 141 U/L (45-117); BUN Blood Urea Nitrogen 11 mg/dL (7-18); Bicarbonate 22 mmol/L (21-32); Bilirubin Direct 0.2 mg/dL (0-0.2); Bilirubin Total 0.7 mg/dL (0.2-1.0); Glucose Level 287 mg/dL (74-106); Lipase 28 U/L (73-393); Magnesium 2.1 mg/dL (1.8-2.4); NT PRO-BNP 81 pg/mL (<125); Potassium 3.6 mmol/L (3.5-5.1); Protein, Total 8.2 g/dL (6.4-8.2); Sodium Level 133 mmol/L (136-145); Troponin (Emerg Dept Use Only) < 0.02 ng/mL (0.0-0.045)
[2021-07-20] MEDS ORDERED: FLUCONAZOLE 100 MG TAB ONE (05:42)
[2021-07-20] MEDS ORDERED: IBUPROFEN 400 MG TAB ONE (06:00)
--- NOTE | 2021-07-20 06:09 | EDPHYS ---
Physician Documentation [facility] Name: Carin North Age: 51 yrs Sex: Female : 1970 Arrival Date: 07/20/2021 Time: 02:37 Bed 19 Private MD: PORTIA Physician Yuri Morfin HPI: 07/20 03:50 This 51 yrs old Female presents to ER via EMS with complaints of vaginal stephane pain, spotting, abd pain and nonambulaorty. 03:50 The patient presents with perineal itching, of the right labia majora and left labia stephane majora, urinary symptoms, vaginal bleeding that is vaginal discharge. Onset: The symptoms/episode began/occurred 3 day(s) ago. Modifying factors: The symptoms are alleviated by nothing, the symptoms are aggravated by nothing. Associated signs and symptoms: The patient has no apparent associated signs or symptoms. Severity of symptoms: At their worst the symptoms were moderate, in the emergency department the symptoms are unchanged. The patient is sexually active, reportedly has a single partner. 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 - Social history:: Smoking status: Patient/guardian denies using tobacco, the patient reports quitting approximately 1 years ago. - Family history:: not pertinent. ROS: 03:50 Constitutional: Negative for fever, chills, and weight loss, Eyes: Negative for injury, stephane pain, redness, and discharge, ENT: Negative for injury, pain, and discharge, Neck: Negative for injury, pain, and swelling, Cardiovascular: Negative for chest pain, palpitations, and edema, Respiratory: Negative for shortness of breath, cough, wheezing, and pleuritic chest pain, Back: Negative for injury and pain, MS/Extremity: Negative for injury and deformity, Skin: Negative for injury, rash, and discoloration, Neuro: Negative for headache, weakness, numbness, tingling, and seizure, Psych: Negative for depression, anxiety, suicide ideation, homicidal ideation, and hallucinations, Allergy/Immunology: Negative for hives, rash, and allergies, Endocrine: Negative for neck swelling, polydipsia, polyuria, polyphagia, and marked weight changes, Hematologic/Lymphatic: Negative for swollen nodes, abnormal bleeding, and unusual bruising. 03:50 Abdomen/GI: Positive for abdominal pain, abdominal cramps, abdominal distension, of the right lower quadrant and left lower quadrant. 03:50 : Positive for urinary symptoms, urinary frequency, vaginal bleeding, vaginal pain. Exam: 03:50 Constitutional: This is a well developed, well nourished patient who is awake, alert, stephane and in no acute distress. Head/Face: Normocephalic, atraumatic. Eyes: Pupils equal round and reactive to light, extra-ocular motions intact. Lids and lashes normal. Conjunctiva and sclera are non-icteric and not injected. Cornea within normal limits. Periorbital areas with no swelling, redness, or edema. ENT: Nares patent. No nasal discharge, no septal abnormalities noted. Tympanic membranes are normal and external auditory canals are clear. Oropharynx with no redness, swelling, or masses, exudates, or evidence of obstruction, uvula midline. Mucous membranes moist. Neck: Trachea midline, no thyromegaly or masses palpated, and no cervical lymphadenopathy. Supple, full range of motion without nuchal rigidity, or vertebral point tenderness. No Meningismus. Chest/axilla: Normal chest wall appearance and motion. Nontender with no deformity. No lesions are appreciated. Respiratory: Lungs have equal breath sounds bilaterally, clear to auscultation and percussion. No rales, rhonchi or wheezes noted. No increased work of breathing, no retractions or nasal flaring. Back: No spinal tenderness. No costovertebral tenderness. Full range of motion. Skin: Warm, dry with normal turgor. Normal color with no rashes, no lesions, and no evidence of cellulitis. MS/ Extremity: Pulses equal, no cyanosis. Neurovascular intact. Full, normal range of motion. Neuro: Awake and alert, GCS 15, oriented to person, place, time, and situation. Cranial nerves II-XII grossly intact. Motor strength 5/5 in all extremities. Sensory grossly intact. Cerebellar exam normal. Normal gait. 03:50 Cardiovascular: Rate: tachycardic, actual rate is 112 bpm, Rhythm: regular, Pulses: Pulses are 4+ in bilateral radial, brachial, femoral, popliteal, posterior tibial and and dorsalis pedis arteries.. Heart sounds: normal, Edema: is not appreciated, JVD: is not appreciated. Vital Signs: 02:38 BP 155 / 84; Pulse 119; Resp 20 S; Temp 98.8(O); Pulse Ox 95% on R/A; Weight 181.44 kg bb (R); Height 5 ft. 6 in. (167.64 cm) (R); Pain 10/10; 06:03 BP 147 / 80; Pulse 103; Resp 20; Pulse Ox 99% ; Pain 5/10; bc5 02:38 Body Mass Index 64.56 (181.44 kg, 167.64 cm) bb MDM: 03:07 Patient medically screened. [facility] 03:54 Differential diagnosis: urinary tract infection. Data reviewed: vital signs, nurses [facility] notes, lab test result(s), EKG, radiologic studies, CT scan, plain films. Data interpreted: cardiac monitor: rate is 119 beats/min, rhythm is regular, Pulse oximetry: on room air is 95 %. Test interpretation: by ED physician or midlevel provider: ECG, plain radiologic studies. Counseling: I had a detailed discussion with the patient and/or guardian regarding: the historical points, exam findings, and any diagnostic results supporting the discharge/admit diagnosis, lab results, radiology results, the need for further work-up and treatment in the hospital. 07/20 03:49 Order name: Basic Metabolic Panel [facility] 07/20 03:49 Order name: CBC with Diff 07/20 03:49 Order name: LFT's 07/20 03:49 Order name: Magnesium [facility] 07/20 03:49 Order name: NT PRO-BNP; Complete Time: 05:01 [facility] 07/20 03:49 Order name: PT-INR; Complete Time: 05:01 [facility] 07/20 03:49 Order name: Troponin (emerg Dept Use Only); Complete Time: 05:01 [facility] 07/20 03:49 Order name: Lipase; Complete Time: 05:01 [facility] 07/20 03:49 Order name: Urine Culture [facility] 07/20 03:49 Order name: Basic Metabolic Panel; Complete Time: 05:01 [facility] 07/20 03:49 Order name: CBC with Automated Diff; Complete Time: 05:01 [facility] 07/20 03:49 Order name: Liver (Hepatic) Function; Complete Time: 05:01 [facility] 07/20 03:49 Order name: Magnesium; Complete Time: 05:01 [facility] 07/20 04:30 Order name: CREATININE WHOLE BLOOD; Complete Time: 04:35 [facility] 07/20 03:49 Order name: XRAY Chest (1 view) [facility] 07/20 03:49 Order name: EKG; Complete Time: 03:50 [facility] 07/20 03:49 Order name: Cardiac monitoring; Complete Time: 03:54 [facility] 07/20 03:49 Order name: EKG - Nurse/Tech; Complete Time: 04:26 [facility] 07/20 03:49 Order name: CT Abd/Pelvis - IV Contrast Only [facility] 07/20 04:32 Order name: Urine Dipstick-Ancillary; Complete Time: 04:35 [facility] 07/20 04:33 Order name: Urine Microscopic Only [facility] 07/20 04:33 Order name: Urine --Ancillary (enter results) [facility] 07/20 04:33 Order name: Urine Microscopic Only; Complete Time: 07:29 [facility] 07/20 04:34 Order name: Urine --Ancillary; Complete Time: 07:29 [facility] 07/20 09:55 Order name: Diet Mech. Soft (chopped); Complete Time: 09:55 6 07/20 03:49 Order name: IV Saline Lock; Complete Time: 04:08 [facility] 07/20 03:49 Order name: Labs collected and sent; Complete Time: 04:08 [facility] 07/20 03:49 Order name: O2 Per Protocol; Complete Time: 03:55 [facility] 07/20 03:49 Order name: O2 Sat Monitoring; Complete Time: 03:55 [facility] 07/20 03:49 Order name: Urine Dipstick-Ancillary (obtain specimen); Complete Time: 04:32 [facility] 07/20 03:49 Order name: Cath: cath ua [facility] 07/20 03:55 Order name: Urine Test (obtain specimen); Complete Time: 04:08 [facility] Administered Medications: 05:21 Drug: NS 0.9% 1000 ml Route: IV; Rate: 1 bolus; Site: right wrist; bc5 05:21 Drug: Rocephin (cefTRIAXone) 1 grams Route: IV; Rate: per protocol; Site: right wrist; 5 05:21 Drug: DiFLUcan (fluconazole) 200 mg Route: PO; bc5 05:37 Drug: Motrin (ibuprofen) 800 mg Route: PO; wg 05:47 Drug: Bactrim (trimethoprim-sulfamethoxazole) (160 mg-800 mg (DS) 1 tablet Route: PO; Disposition Summary: 07/20/21 06:08 Discharge Ordered Location: Home stephane Problem: new stephane Symptoms: have improved stephane Condition: Fair stephane Diagnosis - Obesity, unspecified stephane - UTI/ Urinary tract infection, site not specified stephane - Candidiasis of vulva and vagina stephane - Type 2 diabetes mellitus with hyperglycemia stephane - Ventral hernia without obstruction or gangrene stephane Followup: stephane - With: Private Physician - When: 2 - 3 days - Reason: Recheck today's complaints, Continuance of care, Re-evaluation by your physician Followup: stephane - With: - When: 2 - 3 days - Reason: Recheck today's complaints, Re-evaluation by your physician Discharge Instructions: - Discharge Summary Sheet stephane - Type 2 Diabetes Mellitus, Diagnosis, Adult stephane - Dysuria stephane - Hernia, Adult stephane - Hyperglycemia stephane - Obesity, Adult stephane - Urinary Tract Infection, Adult stephane - Vaginal Yeast Infection, Adult stephane - Urinary Tract Infection, Adult, [id number] stephane - Ventral Hernia stephane - Diabetes Mellitus and Nutrition, Adult stephane - Diabetes Mellitus and Standards of Medical Care stephane - Diabetes Mellitus and Skin Care stephane - Living With Diabetes [facility] Forms: - Medication Reconciliation Form [facility] - Thank You Letter stephane - Antibiotic Education stephane - Prescription Opioid Use [facility] Prescriptions: - Diflucan 150 mg Oral Tablet - take 1 tablet by ORAL route one time for 1 day repeat in 1 week; 2 tablet; [facility] Refills: 0, Product Selection Permitted - Metformin 500 mg Oral Tablet - take 1 tablet by ORAL route every 12 hours for 15 days Then take 1 tablet with [facility] morning meals AND evening meals; 30 tablet; Refills: 0, Product Selection Permitted - Bactrim DS 800-160 mg Oral Tablet - take 1 tablet by ORAL route every 12 hours for 10 days; 20 tablet; Refills: 0, [facility] Product Selection Permitted - Bactrim DS 800-160 mg Oral Tablet - take 1 tablet by ORAL route every 12 hours for 7 days; 14 tablet; Refills: 0, stephane Product Selection Permitted Signatures: Dispatcher [employer] Yuri Sanchez MD MD cha Mickail, Joel, PA PA jmm Ballard, Brenda, NIRALI RN Aron Shepard RN wg Corado, Bella, RN RN bc5
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
[2021-07-20] MEDS ORDERED: SMZ./TMP. 800/160 MG TABLET ONE (06:11)
[2021-07-20 06:14] LABS: Urine Bacteria >50 /HPF (<20); Urine RBC <5 /HPF (NONE SEEN)
--- NOTE | 2021-07-20 09:07 | RAD REPORT ---
EXAM DESCRIPTION: RAD - Chest Single View - 07/20/2021 4:00 am CLINICAL HISTORY: COUGH COMPARISON: September 2019 TECHNIQUE: AP portable chest image was obtained 07/20/2021 4:00 am . FINDINGS: Lung volumes are low. There is pronounced right hemidiaphragm elevation limiting assessmen t of the left base. Lung gil are clear. Interstitial pattern matches comparison. Mediastinum is distorted by rotation. Heart and vasculature are normal. No measurable pleural effusio n and no pneumothorax. No acute bony abnormality seen. No acute aortic findings suspected. IMPRESSION: No acute cardiopulmonary process. Right hemidiaphragm elevation limits right base assessment.
--- NOTE | 2021-07-20 12:27 | RAD REPORT ---
EXAM DESCRIPTION: CT - Abdomen Pelvis W Contrast - 07/20/2021 5:13 am COMPARISON: CT abdomen and pelvis September 04, 2019, report only CLINICAL HISTORY: [facility] MAIN ABD PAIN TECHNIQUE: CT of the abdomen and pelvis was acquired with IV contrast material. Coronal and sagitt al reconstructions were obtained. Automated exposure control was utilized on this examination as a dose lowering technique. FINDINGS: Lung bases: Right basilar atelectasis. Liver: Enlarged liver measuring 24.1 cm midclavicular line. Gallbladder and biliary: Normal gallbladder, not well visualized. Unremarkable biliary tree. Pancreas: Normal. Spleen: Enlarged measuring 15 cm. Adrenal glands: Normal adrenal glands. Kidneys: Normal kidneys Stomach and Small Bowel: The stomach is normal. There is small bowel within the right ventral hernia. Urinary bladder: Normal. Uterus and Adnexa: Normal. Colon and Appendix: Moderate sigmoid diverticulosis. The proximal colon is located in the right ventr al hernia. Nonvisualized appendix. Retroperitoneum and lymph nodes: Normal. Vascular: Moderate multivessel atherosclerosis. Peritoneal cavity: No ascites or free air. Musculoskeletal and soft tissues: The right ventral hernia sac measures 15.8 cm. No aggressive bone l esions. No compression fracture. ABDOMEN/PELVIS IMPRESSION 1. Hepatosplenomegaly. 2. Moderate sigmoid diverticulosis. 3. Small and large bowel within the large right ventral hernia. No evidence of obstruction. Electronically signed by: Driss Hernadez MD 07/20/2021 5:59 AM CDT Due to temporary technical issues with the PACS/Fluency reporting system, reports are being signed by the in house radiologist without review as a courtesy to ensure prompt reporting. The interpreting r adiologist is fully responsible for the content of the report.
[2021-07-20 15:25] VITALS: TEMP 98.8
[2021-07-20 15:26] VITALS: BP 147/80; O2SAT 99
== END 2021-07-20 14:44 | disposition home or self-care (01) ==
LOC: ER 02:35
DX: B37.3 Candidiasis of vulva and vagina (principal); N39.0 Urinary tract infection, site not specified; E11.65 Type 2 diabetes mellitus with hyperglycemia; K43.9 Ventral hernia without obstruction or gangrene; E66.9 Obesity, unspecified; Z88.0 Allergy status to penicillin; Z88.5 Allergy status to narcotic agent; Z88.6 Allergy status to analgesic agent; Z91.048 Other nonmedicinal substance allergy status
CPT/HCPCS: 36415; 71045; 74177; 80048; 80076; 81003; 81015; 81025; 82565; 83690; 83735; 83880; 84484; 85025; 85610; 87077; 87086; 87088; 87186; 93005; 96374; 99284; J0696; J7030; Q9967